=== PATIENT | female | born 1945 | race Caucasian/White ===

== ENCOUNTER 2017-08-09 03:58 | Inpatient (IN) | payer OTHER, MEDICARE ==
[~2017-08-09] VITALS: Ht 160 cm; Wt 78.8 kg
[2017-08-09] VITALS (46 sets, daily range): BP systolic 81–167; BP diastolic 37–148
--- NOTE | ~2017-08-09 | HC ---
[facility] [place] [address] CONSULTATION Name: ETIENNE MARIA Room #: 244-P ADM IN M.R.#: [id number] Admission: 08/09/17 Attend Phys: Fernando Banuelos Discharge: Date of : 45 Report #: [id number] THIS REPORT FOR: //name// CC: Forest Espana DATE OF SERVICE: 08/09/2017 INFECTIOUS DISEASE CONSULTATION REASON FOR CONSULTATION: I was asked to evaluate concerning pneumonia and sepsis in the setting of GI bleeding. HISTORY OF PRESENT ILLNESS: The patient is a 72-year-old who transferred from [facility] with lower GI bleed. She has been on the ventilator via tracheostomy. Has underlying cirrhosis due to FARLEY. Dropped her blood pressure while at the facility, then transferred to [facility] Emergency Room. Fluids have been started and blood pressure has improved. She is on FiO2 of 40%. Minimal tracheal secretions. No further GI bleeding noted. PEG tube in place and tolerating her feedings. She has an indwelling Deleon catheter and an upper extremity PICC. REVIEW OF SYSTEMS: Otherwise unremarkable. PAST MEDICAL HISTORY: She had been in [place] with respiratory failure and failure to wean from the ventilator, Underlying history of COPD, diabetes. She had MRSA in her sputum prior to her transfer. Also, has had Pseudomonas, hypothyroidism, major depressive disorder, herpes zoster. FAMILY HISTORY: Noncontributory. SOCIAL HISTORY: Appears to have a tobacco history. ALLERGIES: None. MEDICATIONS: As noted on her SEP, now on vancomycin, Zosyn and was given a dose of Levaquin. PHYSICAL EXAMINATION: VITAL SIGNS: Currently afebrile, hemodynamically stable. GENERAL: She does arouse, but unable to follow commands. HEENT: Unremarkable. NECK: With tracheostomy, which was unremarkable. LUNGS: Coarse, mostly on the right side with decreased breath sounds in the bases. HEART: Regular without murmur. ABDOMEN: Soft. PEG site was unremarkable. No definite mass or [address] [address] [facility] ADM IN M.R.#: [id number] Admission: 08/09/17 Attend Phys: Fernando Banuelos Discharge: Date of : 45 Report #: [id number] hepatosplenomegaly. EXTREMITIES: Marked bruising to her upper extremities with some oozing from the right arm. PICC site was unremarkable. Lower extremities with edema. LABORATORY STUDIES: CT scan shows several right upper lobe mass-type lesions versus infiltrate with moderate bilateral pleural effusions. Cirrhosis of the liver and splenomegaly. Small amount of ascites. Significant soft tissue edema. Left total shoulder arthroplasty, right total hip arthroplasty. Influenza antigen negative. Urinalysis positive for yeast, few wbc's. Sodium 143, potassium 4.8, bicarbonate 36, creatinine 2.4, alk phos 173, ALT 24. Hemoglobin 8.6, WBC 8, platelet 115,000. IMPRESSION: A 72-year-old with respiratory failure, unclear etiology for right upper lobe mass lesions versus pneumonia with lower gastrointestinal bleed. She has acute renal failure, anemia and thrombocytopenia in the setting of cirrhosis. PLAN: Recommend repeating her cultures, blood, urine and sputum. Obtain bacteria, fungal and AFB cultures from her respiratory tract. Monitor for further gastrointestinal blood loss. She has a sacral wound, which will be further inspected with nursing around for assistance. <ELECTRONICALLY SIGNED> By: Stanislaw Espana MD 08/10/17 1125 1731 0443 Stanislaw Espana MD /nt
--- NOTE | ~2017-08-09 | HC ---
[facility] [place] [address] CONSULTATION Name: ETIENNE MARIA Room #: 244-P [facility] IN M.R.#: [id number] Admission: 08/09/17 Attend Phys: Fernando Banuelos Discharge: 08/16/17 Date of : 45 Report #: [id number] THIS REPORT FOR: //name// CC: Forest Espana DATE OF SERVICE: 08/10/2017 WOUND CARE CONSULTATION PERSONAL PHYSICIAN: Petar Espana MD CHIEF COMPLAINT: Sacral decubitus ulcer. HISTORY OF PRESENT ILLNESS: This is a 72-year-old white female who was transferred from [facility] where she was noted to have rectal bleeding. The patient herself is on chronic ventilatory dependence, is unable to give me history at this time. The patient also is sedated. Per old records, the patient has history of COPD, PEG tube placement and then sacrococcygeal ulcer. We have been asked to assist in the care of sacrococcygeal ulcer. The patient was actually admitted for rectal bleeding and was also noted on exam to have significant skin tears, which were oozing blood at this time. The patient once again is unable to give any history. PAST MEDICAL HISTORY: Per old records once again is COPD, ventilator dependent, status post tracheostomy; recent history of GI bleeding; FARLEY; protein-calorie malnutrition; dysphagia. CURRENT MEDICATIONS: Multiple, I reviewed the patient's medications list. DRUG ALLERGIES: None. SOCIAL HISTORY: The patient resides in a care facility and is ventilator dependent. FAMILY HISTORY AND REVIEW OF SYSTEMS: Unobtainable because the patient is intubated and sedated. PHYSICAL EXAMINATION: VITAL SIGNS: Temp 36.6. Rest of the vital signs are stable. The patient is on a ventilator. GENERAL: This is a poorly arousable white female who is intubated and sedated, but will open eyes to painful stimuli. HEENT: Normocephalic, atraumatic. Mucous membranes are exquisitely dry. Pupils are round. Sclerae white. LUNGS: Show coarse breath sounds heard throughout. HEART: Regular, without murmur. [facility] [address] [place] [address] [facility] Room #: 244-P [facility] IN M.R.#: [id number] Admission: 08/09/17 Attend Phys: Fernando Banuelos Discharge: 08/16/17 Date of : 45 Report #: [id number] ABDOMEN: Soft, obese, nontender. EXTREMITIES: The patient has 3+ edema in bilateral lower extremities with weeping bloody drainage coming from the right upper extremity skin tears. Distal pulses are intact. Evaluation of the sacrococcygeal region reveals an unstageable decubitus ulcer with black soft eschar. Periulcer itself is otherwise intact without erythema, warmth or signs of cellulitis. NEUROLOGIC: One again, the patient is intubated and sedated on a ventilator. LABORATORY VALUES: White count 9.8, hemoglobin 29.7. BUN 82, creatinine 2.3, albumin is markedly low at 1.6. Chest x-ray shows small pleural effusions bilaterally, a large right lung infiltrate. CT scan of chest, abdomen and pelvis is pending. WOUND CARE COURSE: At this time, we will start the patient on Silvadene cream mixed with zinc to the sacrococcygeal area to soften his eschar and potentially for further debridement in the near future. I will have the patient be on low air loss mattress in order for him to have frequent turns. I will cover the skin tears with foam dressings for protection. We will make sure the patient's protein supplementation is maximized for optimal healing. We will continue to follow the patient. <ELECTRONICALLY SIGNED> By: Chetan Nevarez MD 09/08/17 1524 1423 0123 Chetan Nevarez MD /nt
--- NOTE | ~2017-08-09 | P ---
[place] [address] PROCEDURE REPORT Name: ETIENNE MARIA Room #: 244-P [facility] IN M.R.#: [id number] Admission: 08/09/17 Attend Phys: Fernando Banuelos Discharge: Date of : 45 Report #: [id number] THIS REPORT FOR: //name// CC: SHARRI Espana DATE OF SERVICE: 08/15/2017 PROCEDURE PERFORMED: Colonoscopy. HISTORY OF PRESENT ILLNESS: The patient is a 72-year-old female with a history of melanotic type stools as well as bright red blood per rectum. She has been dependent on a trach with a tracheostomy. She also has a PEG tube in place. She underwent an upper endoscopy by my partner, Dr. Chavarria last week, which noted a gastritis, but no signs of bleeding. Hemoglobin at this time is 8.9, this is down from yesterday 9.4. The patient currently has a rectal tube in place with clear yellow stool noted. There is no obvious bleeding. Plan is for colonoscopy. PROCEDURE: The risks and benefits of the procedure were explained to the patient's durable power of senior trial attorney, those risks including, but not limited to bleeding, perforation, and the risk of sedation. They understood these risks and gave informed consent. The procedure was performed at the bedside in the ICU. Sedation was given using propofol per anesthesia. Next, the rectal tube was deflated and removed. Next, a digital rectal exam showed large external hemorrhoids. No signs of bleeding, otherwise normal. Next, using a standard Fujinon colonoscope, the scope was placed in the patient's anus and advanced under direct vision to the cecum. The overall prep was excellent. The cecum and ileocecal valve were normal in appearance. Ascending, transverse, descending, and sigmoid colon were all normal. The rectal mucosa was normal. There was no evidence of bleeding throughout the exam today. No evidence of colitis or inflammation. Again, large external hemorrhoids were noted, nonbleeding; however, there was one area with a purple color change suggesting the possibility of a recent source of bleed. The scope was then withdrawn fully and the procedure terminated. The patient tolerated the procedure well. IMPRESSION: 1. Large external hemorrhoids, possible source of recent bright red blood per rectum. No evidence of active bleeding at this time. 2. Otherwise, normal colonoscopy. PLAN: 1. To replace a rectal tube today. 2. Continue to monitor hemoglobin. 3. We will restart tube feedings at this time. [address] [place] [address] PROCEDURE REPORT Name: ETIENNE MARIA Room #: 244-P [facility] IN .R.#: [id number] Admission: 08/09/17 Attend Phys: Fernando Banuelos Discharge: Date of : 45 Report #: [id number] Thank you for allowing me to participate in her care. <ELECTRONICALLY SIGNED> By: Tim Pulliam MD 08/15/17 1407 1012 1059 Tim Pulliam MD /denise
--- NOTE | ~2017-08-09 | HC ---
[facility] [place] [address] CONSULTATION Name: ETIENNE MARIA Room #: 244-P ADM IN M.R.#: [id number] Admission: 08/09/17 Attend Phys: Fernando Banuelos Discharge: Date of : 45 Report #: [id number] THIS REPORT FOR: //name// CC: Forest Espana REASON FOR CONSULTATION: Elevated creatinine. REASON FOR PRESENTATION: Rectal bleeding. HISTORY OF PRESENT ILLNESS: The details of the history of present illness were obtained from the medical record as the patient is currently on the vent and not able to provide me with the history. She is a 72-year-old who resides at the long-term [facility] for vent management. She is status post tracheostomy. She was found to have some bleeding around the tracheostomy in her [facility] facility, associated with bleeding from the rectum. She was transferred for further evaluation and management. It does not look like that she had history of chronic kidney disease. She was transferred from [place], [place], few weeks ago for chronic vent care and wound care along with the tube feed issues at the [facility] facility. She is known to have COPD, FARLEY. She also suffers from chronic diabetes mellitus. Not able to further clarify on her kidney function; however, on presentation, she was found to have a creatinine of 2.4 and I was asked to evaluate accordingly. There is no mention of chronic kidney disease in her previous medical records. She was transfused with blood yesterday and her hemoglobin was up to 10 this morning. GI is currently evaluating the source of the GI bleeding. PAST MEDICAL HISTORY: 1. COPD. 2. FARLEY. 3. Status post PEG tube. 4. Status post tracheostomy. 5. Chronic coccygeal wounds. 6. GERD. 7. History of MRSA. SOCIAL HISTORY: Unobtainable given the patient's current status. REVIEW OF SYSTEMS: Completely unable to obtain the review of system given the patient's nonverbal status. FAMILY HISTORY: Unobtainable. MEDICATIONS: Currently, the patient is maintained on: 1. D5W half normal saline at 75 mL: 2. Hydrocodone. 3. Levothyroxine. 4. [address]ol. [facility] [address] [place] [address] CONSULTATION Name: ETIENNE MARIA Room #: 244-P [facility] IN M.R.#: [id number] Admission: 08/09/17 Attend Phys: Fernando Banuelos Discharge: Date of : 45 Report #: [id number] 5. Protonix. 6. Vancomycin and Zosyn. PHYSICAL EXAMINATION: GENERAL: She is on the vent. She is nonverbal. VITAL SIGNS: Blood pressure is very labile from a low reading of 81/59 up to 268/238 per records which does not seem to be right to me. HEAD AND NECK: Tracheostomy in place. CHEST: No crackles. CARDIOVASCULAR: No rub. ABDOMEN: Soft, nontender. LOWER EXTREMITIES: +3 edema. LABORATORY DATA: Laboratory values reviewed. Hemoglobin is up to 10, BUN is 82, creatinine is 2.3. Albumin is 1.6. TSH was 14.6. Coagulations with an INR of 1.1. Serology is pending. IMAGING: Ultrasound with no acute finding. CT with bibasilar infiltrate and changes consistent with cirrhosis. ASSESSMENT, IMPRESSION, PLAN: 1. Chronic kidney disease. 2. Nonalcoholic steatohepatitis, cirrhosis. 3. Rectal bleeding. 4. Chronic obstructive pulmonary disease, status post tracheostomy. Vent dependency. 5. Percutaneous endoscopic gastrostomy tube. 6. Need to obtain the patient's old medical records, specifically her old kidney function. 7. Gastroenterology had been consulted for her possible gastrointestinal bleeding. 8. Continue to monitor hemoglobin. 9. Avoid nephrotoxins. 10. Gentle IV hydration until the patient is able to resume her tube feed. 11. Initiate diuresis. <ELECTRONICALLY SIGNED> By: Navdeep Shelby MD 08/14/17 1703 0731 0803 Navdeep Shelby MD /nt
--- NOTE | ~2017-08-09 | S ---
[facility] [place] [address] SURGICAL PATH RPT PROCEDURE Name: ETIENNE LOJA Room #: 244-P ADM IN M.R.#: [id number] Admission: 08/09/17 Date of : 45 Discharge: Report #: [id number] Path Case #: [id number] PATHOLOGY REPORT COLLECTION DATE: 08/10/2017 RECEIVED DATE: 08/11/2017 SUBMITTING PHYS: Dr. Gayathri Chavarria OTHER PHYS: Dr. Nilay Espana SPECIMEN(S) RECEIVED: A.Bx gastric * * * * * * * * * * * * FINAL DIAGNOSIS: "Bx gastric", biopsy: - Gastric mucosa with reactive changes and mild chronic inflammation. - Negative H. pylori immunohistochemical (block A1); control reacted appropriately. (CLW:db; 08/12/2017) PATHOLOGIST: Collette Bates M.D. REPORT ELECTRONICALLY SIGNED BY: Collette Bates M.D. DATE/TIME: 08/12/2017 13:06 * * * * * * * * * * * * GROSS PATHOLOGY: Received in formalin labeled "Etienne Loja, biopsy gastric, R/O H. pylori," is a segment of mason soft tissue measuring 0.5 cm in maximum dimension. The specimen is submitted entirely in cassette A1. (CAA; 08/11/2017) CLINICAL HISTORY: Pre-op diagnosis: Anemia, melena Post-op diagnosis: Hemorrhagic gastritis R/O H. pylori INITIAL CPT CODE(S): A; 10513, 23838 Professional services performed by [facility] at [facility] [address] [place] [address] Technical services performed by [facility] at [address] [place] [id number]. [facility] [address] [place] [address] SURGICAL PATH RPT PROCEDURE Name: ETIENNE LOJA Room #: 244-P ADM IN M.R.#: [id number] Admission: 08/09/17 Date of : 45 Discharge: Report #: [id number] Path Case #: [id number] [address] PHONE: [phone] DIRECTOR: Dinh Warren M.D. * * * END OF REPORT * * *
--- NOTE | ~2017-08-09 | CNG ---
[facility] [place] [address] CYTO-NONGYN REPORT PROCEDURE Name: ETIENNE LOJA Room #: 244-P ADM IN M.R.#: [id number] Admission: 08/09/17 Date of : 45 Discharge: Report #: [id number] Path Case #: [id number] CYTOPATHOLOGY REPORT COLLECTION DATE: 08/11/2017 RECEIVED DATE: 08/12/2017 SUBMITTING PHYS: Dr. Orville Rosario OTHER PHYS: Dr. Nilay Espana CLINICAL HISTORY: GI bleed, HCAP, elevated creatinine; See also [id number] SPECIMEN(S) RECEIVED: A.Bronchial wash, RLL B.Brushing, RLL * * * * * * * * * * * * FINAL DIAGNOSIS: A. Bronchial wash, RLL: Atypical cells identified. - Atypical cells and reactive bronchial epithelial cells identified with background acute and chronic inflammation. B. Brushing, RLL: Atypical cells identified. - Atypical cells and reactive bronchial epithelial cells identified amongst acute and chronic inflammation. COMMENT: The atypical cells are favored to be reactive. Clinical, radiographic and bronchoscopic correlation is required. PATHOLOGIST: Collette Bates M.D. REPORT ELECTRONICALLY SIGNED BY: Collette Bates M.D. DATE/TIME: 08/15/2017 14:27 * * * * * * * * * * * * GROSS PATHOLOGY: A. Bronchial wash, RLL: The specimen is submitted unfixed, labeled "Etienne Loja". Received by the Cytology Department is 25 mL of cloudy colorless fluid. One ThinPrep slide was prepared. B. Brushing, RLL: The specimen is labeled "Etienne Loja" and consists of a brush tip in fixative, and three fixed slides. One ThinPrep slide was prepared. (lg08.12.2017) DRAPERY ESTIMATOR(S): TONY Mulligan(ASCP) INITIAL CPT CODE(S): A; [address] [address] CYTO-NONGYN REPORT PROCEDURE Name: ETIENNE LOJA Room #: 244-P ADM IN M.R.#: [id number] Admission: 08/09/17 Date of : 45 Discharge: Report #: [id number] Path Case #: [id number]; [id number] Professional services performed by [facility] at [address], [place] [address] [facility] at [address] [place] [address]., [address], [place] [address]. [address], [facility] [address] [place] [address] PHONE: [phone] DIRECTOR: Dinh Warren M.D. * * * END OF REPORT * * *
--- NOTE | ~2017-08-09 | P ---
[facility] [place] [address] PROCEDURE REPORT Name: ETIENNE MARIA Room #: 244-P [facility] IN M.R.#: [id number] Admission: 08/09/17 Attend Phys: Fernando Banuelos Discharge: Date of : 45 Report #: [id number] THIS REPORT FOR: //name// CC: Petar Espana DATE OF SERVICE: 08/10/2017 PATIENT OF: Petar Espana MD PROCEDURE: EGD with biopsy. INDICATION FOR PROCEDURE: This patient had onset of melena through the night. Her hemoglobin was down from 8.6 on admission to 6.7 last night. She received 2 units of blood overnight and her hemoglobin was 10 this morning at 3:00 a.m. and at 10:00 a.m. it was 9.8, so it appeared to have stabilized. She had passed a lot of melena through the night and EGD is being performed to try to evaluate for the source of this melena. Informed consent for this procedure was obtained from the patient's , the risks of the procedure which include bleeding, perforation, infection, complications of sedation and the possibility I could miss something have been explained to the patient and he has indicated his consent for his to have the EGD done. Propofol was slowly titrated before and during this procedure for patient comfort by the anesthesia service. The [facility] upper videoscope was introduced through the upper esophageal sphincter and advanced under direct visualization to the second portion of the duodenum almost to the third portion. Findings are noted on withdrawal of the scope. The visualized portions of the duodenum appeared normal. Pylorus, normal mucosa; antrum, there is some hemorrhagic gastritis noted in the antrum, body, cardia and fundus of the stomach. Biopsies were obtained x 2 for histopathology to evaluate for possible H. pylori infection. There is deformity of the stomach with numerous scars that are star shaped along the greater curvature of the stomach. A PEG tube bumper is visible on the anterior wall of the stomach and appears normal. Biopsies were obtained x 2 for histopathology as mentioned. The scope was withdrawn to the esophagus. The Z line is appropriately located at approximately 38 cm. The esophageal mucosa appears normal throughout its entirety. The scope was withdrawn. The patient went to the recovery area in stable condition. She tolerated the procedure well. IMPRESSION: 1. Diffuse nonbleeding at this time, hemorrhagic gastritis, biopsies pending. 2. PEG tube bumper seen on the anterior wall of the stomach. 3. Multiple scars noted along the greater curvature of the stomach of uncertain [address] [address] PROCEDURE REPORT Name: ETIENNE MARIA [facility] IN ..#: [id number] Admission: 08/09/17 Attend Phys: Fernando Banuelos Discharge: Date of : 45 Report #: [id number] etiology. Recommendations are for her to be on a proton pump inhibitor drip continuously for now. We will monitor her H and H every 6 hours. Her tube feeding can be resumed. Thank you very much once again for allowing me to participate in her care Dr. Espana. <ELECTRONICALLY SIGNED> By: Gayathri Chavarria DO 08/11/17 0653 1603 0257 Gayathri Chavarria DO /nt
--- NOTE | ~2017-08-09 | HC ---
[facility] [place] [address] CONSULTATION Name: ETIENNE MARIA Room #: 244-P [facility] IN M.R.#: [id number] Admission: 08/09/17 Attend Phys: Fernando Banuelos Discharge: 08/16/17 Date of : 45 Report #: [id number] THIS REPORT FOR: //name// CC: Forest Villeda MD DATE OF SERVICE: 08/09/2017 REFERRING PROVIDER: Hugo Villeda MD REASON FOR CONSULTATION: Pneumonia. CHIEF COMPLAINT: Hemoptysis. HISTORY OF PRESENT ILLNESS: Our group was asked to evaluate the patient in consultation while hospitalized at [facility]. This is her first visit to [facility], recently admitted to [facility] 1 week ago, apparently has some chronic respiratory failure on mechanical ventilatory support due to underlying COPD, presented to the Emergency Department with some blood from tracheal aspirates as well as some rectal bleeding. Workup thus far did show some anemia. Chest x-ray showed multiple areas of infiltrate, questionable mass and was started on healthcare-associated pneumonia antibiotic coverage. She has some thick brown secretions around her tracheostomy site at this time. She is unable to give much further history due to being nonverbal. ALLERGIES: None known. PAST MEDICAL HISTORY: 1. Chronic respiratory failure. 2. COPD. 3. Hypothyroidism. 4. History of sacral wound. 5. Chronic respiratory failure on mechanical ventilatory support. OUTPATIENT MEDICATIONS: Included Synthroid, multivitamin, olanzapine, Protonix, quetiapine, vitamin D3, insulin, metoprolol, Brovana, Lasix, hydrocodone. SOCIAL HISTORY: The patient is a former smoker, unclear of the exact tobacco history. FAMILY HISTORY: Unobtainable. REVIEW OF SYSTEMS: Unobtainable due to her current status and being nonverbal. PHYSICAL EXAMINATION: VITAL SIGNS: Temperature 35.5, pulse 70, respiratory rate 18, blood pressure [facility] [address] [place] [address] CONSULTATION Name: ETIENNE MARIA Room #: 244-P [facility] IN .R.#: [id number] Admission: 08/09/17 Attend Phys: Fernando Banuelos Discharge: 08/16/17 Date of : 45 Report #: [id number] 136/85. GENERAL: This is an elderly woman, somnolent, somewhat responsive. ENT: An extended length trach in place with thick brown secretions noted around the airway. LUNGS: Reveal some coarse rhonchi throughout. CARDIOVASCULAR: Heart was regular. No murmurs noted. ABDOMEN: Soft. PEG tube in place. Bowel sounds active. EXTREMITIES: Revealed 1+ lower extremity edema. LABORATORY DATA: White blood cell count 8000, hemoglobin 9, hematocrit 27, platelet count 115. Sodium 143, potassium 4.8, chloride 100, bicarbonate 36, BUN 92, creatinine 2.4, glucose 263. Alkaline phosphatase 173, albumin 1.8. TSH 14.7. INR 1.1. Urinalysis; 6-15 white blood cells. Chest x-ray with diffuse pulmonary infiltrates, questionable mass-like infiltrate seen, right greater than left. IMPRESSION: 1. Multilobar pneumonia. The patient with history of methicillin resistant Staphylococcus aureus and Pseudomonas by report. 2. Chronic respiratory failure. 3. Possible gastrointestinal bleed. 4. Anemia. 5. Chronic respiratory failure, uncertain if she will ever be able to wean from ventilator. 6. Chronic obstructive pulmonary disease. SUGGESTIONS: 1. Bronchodilators. 2. Antibiotics per Infectious Disease service. 3. Await cultures and respiratory panels, looking for evidence of viral or influenza disease. 4. Additional recommendations to follow. Thank you for requesting our suggestions. <ELECTRONICALLY SIGNED> By: Orville Rosario MD 08/22/17 1535 [id number] Orville Rosario MD /nt
--- NOTE | ~2017-08-09 | P ---
[facility] [address] PROCEDURE REPORT Name: ETIENNE MARIA Room #: 244-P [facility] IN M.R.#: [id number] Admission: 08/09/17 Attend Phys: Fernando Banuelos Discharge: 08/16/17 Date of : 45 Report #: [id number] THIS REPORT FOR: //name// CC: Forest Villeda MD DATE OF SERVICE: 08/11/2017 BRONCHOSCOPY NOTE PROCEDURE: Fiberoptic bronchoscopy with bronchial washings and cytologic brushes in the right lower lobe. INDICATION: Multiple pulmonary nodular lesions and pneumonia, mucus plugging. The patient on chronic vent, ASA classification class 3. PROCEDURE NOTATION: After obtaining informed consent from family, was agreeable to proceed. Bronchoscopy equipment was brought to the bedside in ICU room 244. The patient received conscious sedation, a total of 2 mg of Versed were required prior to adequate sedation. Once accomplished, bronchoscope was passed through a size 8 distal extended length tracheostomy tube until the trachea was visualized. The distal trachea then received 1% lidocaine topically and provide topical anesthesia. Bronchoscope was then advanced through the mainstem, lobar, segmental and subsegmental bronchi throughout. Some mucus plugging noted predominantly in the right lower lung field, otherwise no significant lesions. Cytologic brushes were obtained. Random subsegments in the right lower lobe as well as bronchial washings throughout the right lower lung. Specimen sent for cytologic and microbiologic tests. The patient tolerated it well. No noted complications. IMPRESSION: Abnormal CT scan of the chest, suggesting nodular lesions or infiltrates. No mass lesions noted at least with endobronchial evaluation. PLAN: Await cytologic and microbiologic tests. Continue to follow radiographically. <ELECTRONICALLY SIGNED> By: Orville Rosario MD 08/22/17 1535 [id number] Orville Rosario MD /nt
--- NOTE | ~2017-08-09 | H ---
[facility] [place] [address] HISTORY AND PHYSICAL Name: ETIENNE MARIA Room #: 244-P ADM IN M.R.#: [id number] Admission: 08/09/17 Attend Phys: Fernando Banuelos Discharge: Date of : 45 Report #: [id number] THIS REPORT FOR: //name// CC: Forest Espana DATE OF SERVICE: 08/09/2017 CHIEF COMPLAINT: Bleeding. HISTORY OF PRESENT ILLNESS: The patient is a 72-year-old female transferred from [facility] long-term care ventilator unit for evaluation of bleeding. The report was nursing staff noted bleeding around the trach and some blood clots or bleeding per rectum yesterday and last night. They were unable to quantify how much, but through the middle of the night, they again noted about 50 mL of bleeding from the rectum. She was transferred to the ER and admitted to ICU overnight. She transferred to [facility] from [place] about a week ago for chronic ventilator care following a hospital stay, she had respiratory failure requiring intubation and mechanical ventilation, subsequent trach placement with PEG tube due to COPD. She has been nonweanable and has now been transferred to the chronic care unit at [facility]. PAST MEDICAL HISTORY: COPD, hypercapnic hypoxic respiratory failure, ventilator dependence, tracheostomy in place, FARLEY, diabetes type 2, and pancytopenia. PAST SURGICAL HISTORY: As above. FAMILY HISTORY: Unknown. SOCIAL HISTORY: smoking history. ALLERGIES: None. MEDICATIONS: Multivitamin, Seroquel, Protonix, vitamin D, clonidine, Levemir, acidophilus, Levoxyl, metoprolol, Brovana, Celexa, Lasix, hydrocodone, NovoLog sliding scale. REVIEW OF SYSTEMS: She just complains of being warm. She is alert. She answers basic questions. Denied chest pain, nausea, or vomiting. OBJECTIVE: VITAL SIGNS: Temperature 35.5, pulse 76, respirations 19, blood pressure , O2 sat 100% on the ventilator. GENERAL: She is awake and alert, in no distress. HEAD AND NECK: Unremarkable. There is a tracheostomy in place with some [facility] [address] [place] [address] HISTORY AND PHYSICAL Name: ETIENNE MARIA Room #: 244-P ADM IN ..#: [id number] Admission: 08/09/17 Attend Phys: Fernando Banuelos Discharge: Date of : 45 Report #: [id number] purulent drainage. HEART: Regular. LUNGS: Clear. No wheezing. ABDOMEN: Soft, normoactive bowel sounds. PEG tube in place. EXTREMITIES: No cyanosis or clubbing. There is 1+ edema of the forearms bilaterally with ecchymosis scattered throughout. NEUROLOGIC: She is alert. She follows basic commands. She speaks over the trach. She moves all extremities. LAB: Reviewed. ASSESSMENT: 1. Gastrointestinal bleed. 2. Chronic hypercapnic hypoxic respiratory failure. 3. Chronic kidney disease. 4. Chronic obstructive pulmonary disease. 5. Diabetes type 2. 6. Pancytopenia. 7. Non-alcoholic steatohepatitis. PLAN: Full ICU care has been entered. I will ask pulmonary and renal to assess her, may need to readdress her trach status. GI to see, although she might be a fragile status to consider endoscopy. Monitor for signs or symptoms of bleeding. <ELECTRONICALLY SIGNED> By: Hugo Villeda MD 08/10/17 1539 [id number] Hugo Villeda MD /nt
[2017-08-09 04:23] LABS: HEMOGLOBIN 8.6 gm/dL (12.0-15.0); MCH 28.4 pg (26.0-34.0); MCHC 31.7 g/dL (28.0-37.0); MCV 89.5 fL (80.0-100.0); RBC 3.02 mil/uL (4.20-5.00); RDW 19.6 % (10.5-14.5)
[2017-08-09 04:34] LABS: CALCIUM 8.9 mg/dL (8.5-10.1); CREATININE 2.4 mg/dL (0.6-1.0); POTASSIUM 4.8 mmol/L (3.5-5.1)
[2017-08-09] MEDS ORDERED: MULTIVITAMINS1 EAC7 PO (04:34)
[2017-08-09] MEDS ORDERED: PROTONIX40 M1 PO (04:36)
[2017-08-09] MEDS ORDERED: SEROQUEL 25 MG25 M1 PO (04:36)
[2017-08-09] MEDS ORDERED: OLANZAPINE2.5 MG PO (04:36)
[2017-08-09] MEDS ORDERED: VITAMIN D2000 UNIT PO (04:37)
[2017-08-09 04:38] LABS: APTT 25.4 Seconds (24.5-32.8); INR 1.1; PROTIME 11.5 Seconds (9.3-11.4)
[2017-08-09] MEDS ORDERED: PAIN RELIEF325 MG PO (04:38)
[2017-08-09] MEDS ORDERED: LEVEMIR SUBQ (04:39)
[2017-08-09] MEDS ORDERED: PROBIOTIC1 EAC1 PO (04:39)
[2017-08-09] MEDS ORDERED: CLONIDINE HCL0.1 M1 PO (04:39)
[2017-08-09 04:40] LABS: ALBUMIN 1.8 g/dL (3.4-5.0); TOTAL BILIRUBIN 0.7 mg/dL (<0.1-1.0); TOTAL PROTEIN 6.3 g/dL (6.4-8.2)
[2017-08-09] MEDS ORDERED: TIROSINT112 MCG PO (04:41)
[2017-08-09] MEDS ORDERED: LEVOTHYROXINE25 MCG PO (04:41)
[2017-08-09] MEDS ORDERED: METOPROLOL TART25 MG PO (04:42)
[2017-08-09] MEDS ORDERED: BROVANA15 MCG/2 M INH (04:43)
[2017-08-09] MEDS ORDERED: PROCEL1 EACH PO (04:44)
[2017-08-09] MEDS ORDERED: PERIDEX15 ML SWISH&SPIT (04:47)
[2017-08-09] MEDS ORDERED: CELEXA40 MG PO (04:48)
[2017-08-09 04:49] LABS: URINE BILIRUBIN NEGATIVE (Negative); URINE BLOOD 1+ (Negative); URINE CLARITY CLEAR; URINE COLOR YELLOW; URINE GLUCOSE-RANDOM* NEGATIVE (Negative); URINE KETONES NEGATIVE (Negative); URINE LEUKOCYTES-REFLEX 1+ (Negative); URINE NITRITE-REFLEX NEGATIVE (Negative); URINE PROTEIN (DIPSTICK) TRACE (Negative); URINE SPECIFIC GRAVITY 1.015 (1.005-1.035); URINE UROBILINOGEN 0.2 E.U./dl (0.2-1.0)
[2017-08-09] MEDS ORDERED: COLACE100 MG PO (04:49)
[2017-08-09] MEDS ORDERED: FUROSEMIDE 40 M40 M1 PO (04:49)
[2017-08-09] MEDS ORDERED: NORCO 5-325 TA1 EACH PO (04:50)
[2017-08-09] MEDS ORDERED: ROBITUSSIN100 MG/53 PO (04:50)
[2017-08-09] MEDS ORDERED: NOVOLOG100 UNIT/1 SUBQ (04:53)
[2017-08-09 05:08] LABS: BACTERIA-REFLEX None Seen /HPF (None Seen); CASTS None Seen /LPF (None Seen); CRYSTALS None Seen /LPF (None Seen); MUCUS None Seen strn/LPF (None Seen); SQUAMOUS None Seen /LPF (0-3); URINE RBC 3-10 Few /HPF (0-2); URINE WBC-REFLEX 6-15 Few /HPF (0-5); YEAST-REFLEX Present (None Seen)
[2017-08-09 10:25] LABS: HEMATOCRIT 22.8 % (37.0-47.0); HEMOGLOBIN 7.2 gm/dL (12.0-15.0)
[2017-08-09 13:51] LABS: BE(vivo) 4.5 mmol/L (-2 to +3); HCO3 30.5 mmol/L (22.0-26.0); PCO2 54.3 mmHg (35.0-45.0); PO2 94.1 mmHg (80.0-100.0); pH 7.368 (7.360-7.450); sO2 96.9 % (92.0-98.0)
[2017-08-09 16:45] LABS: URINE CREATININE-RANDOM* 23.9 mg/dL; URINE PROTEIN-RANDOM* 60.8 mg/dL (<11.9)
[2017-08-09 18:49] LABS: HEMOGLOBIN 6.7 gm/dL (12.0-15.0)
[2017-08-10] VITALS (64 sets, daily range): BP systolic 75–268; BP diastolic 41–238
[2017-08-10 03:16] LABS: HEMATOCRIT 30.2 % (37.0-47.0)
[2017-08-10 03:36] LABS: ALBUMIN 1.6 g/dL (3.4-5.0); CALCIUM 8.4 mg/dL (8.5-10.1); CREATININE 2.3 mg/dL (0.6-1.0); POTASSIUM 4.2 mmol/L (3.5-5.1); TOTAL BILIRUBIN 1.1 mg/dL (<0.1-1.0); TOTAL PROTEIN 5.7 g/dL (6.4-8.2)
[2017-08-10 10:54] LABS: HEMATOCRIT 29.7 % (37.0-47.0); HEMOGLOBIN 9.8 gm/dL (12.0-15.0)
[2017-08-11] VITALS (33 sets, daily range): BP systolic 89–141; BP diastolic 37–105
[2017-08-11 04:27] LABS: HEMATOCRIT 28.5 % (37.0-47.0); HEMOGLOBIN 9.4 gm/dL (12.0-15.0); MCH 29.3 pg (26.0-34.0); MCHC 33.1 g/dL (28.0-37.0); MCV 88.4 fL (80.0-100.0); RBC 3.22 mil/uL (4.20-5.00); RDW 17.6 % (10.5-14.5); WBC 5.2 thou/uL (4.0-11.0)
[2017-08-11 04:37] LABS: ALBUMIN 1.5 g/dL (3.4-5.0); CREATININE 2.2 mg/dL (0.6-1.0); PHOSPHORUS 4.9 mg/dL (2.5-4.9); POTASSIUM 3.7 mmol/L (3.5-5.1)
[2017-08-11 11:43] LABS: % SATURATION 22 % (20-39); IRON 24 ug/dL (50-170); TIBC 108 ug/dL (250-450)
[2017-08-12] VITALS (24 sets, daily range): BP systolic 89–144; BP diastolic 42–98
[2017-08-12 02:11] LABS: ADENOVIRUS Negative (Negative); INFLUENZA A Negative (Negative); INFLUENZA B Negative (Negative); METAPNEUMOVIRUS Negative (Negative); PARAINFLUENZA 1 Negative (Negative); PARAINFLUENZA 2 Negative (Negative); PARAINFLUENZA 3 Negative (Negative); RHINOVIRUS Negative (Negative); RSV A Negative (Negative); RSV B Negative (Negative)
[2017-08-12 05:18] LABS: BE(vivo) 5.1 mmol/L (-2 to +3); PCO2 52.4 mmHg (35.0-45.0); PO2 96.8 mmHg (80.0-100.0); sO2 97.2 % (92.0-98.0)
[2017-08-12 05:26] LABS: HEMATOCRIT 28.8 % (37.0-47.0); HEMOGLOBIN 9.3 gm/dL (12.0-15.0); MCHC 32.4 g/dL (28.0-37.0); MCV 89.4 fL (80.0-100.0); RBC 3.22 mil/uL (4.20-5.00); RDW 17.5 % (10.5-14.5); WBC 5.3 thou/uL (4.0-11.0)
[2017-08-12 05:37] LABS: ALBUMIN 1.5 g/dL (3.4-5.0); CALCIUM 8.3 mg/dL (8.5-10.1); CREATININE 2.1 mg/dL (0.6-1.0); POTASSIUM 3.3 mmol/L (3.5-5.1)
[2017-08-13] VITALS (22 sets, daily range): BP systolic 113–153; BP diastolic 41–77
[2017-08-13 05:24] LABS: HEMATOCRIT 27.7 % (37.0-47.0); HEMOGLOBIN 9.1 gm/dL (12.0-15.0); MCH 29.1 pg (26.0-34.0); MCHC 32.7 g/dL (28.0-37.0); MCV 88.8 fL (80.0-100.0); RBC 3.11 mil/uL (4.20-5.00); RDW 17.7 % (10.5-14.5); WBC 4.7 thou/uL (4.0-11.0)
[2017-08-13 05:35] LABS: ALBUMIN 1.5 g/dL (3.4-5.0); CALCIUM 8.2 mg/dL (8.5-10.1); CREATININE 2.1 mg/dL (0.6-1.0); PHOSPHORUS 3.5 mg/dL (2.5-4.9); POTASSIUM 3.5 mmol/L (3.5-5.1)
[2017-08-13 19:12] LABS: HISTOPLASMA MYCELIAL-ID Negative (Negative)
[2017-08-14] VITALS (23 sets, daily range): BP systolic 123–174; BP diastolic 37–106
[2017-08-14 05:09] LABS: CALCIUM 8.3 mg/dL (8.5-10.1); CREATININE 1.9 mg/dL (0.6-1.0); POTASSIUM 3.4 mmol/L (3.5-5.1)
[2017-08-14 05:24] LABS: HEMATOCRIT 27.6 % (37.0-47.0); HEMOGLOBIN 9.1 gm/dL (12.0-15.0); MCH 29.4 pg (26.0-34.0); MCHC 33.1 g/dL (28.0-37.0); MCV 88.8 fL (80.0-100.0); RBC 3.11 mil/uL (4.20-5.00); RDW 17.7 % (10.5-14.5); WBC 4.5 thou/uL (4.0-11.0)
[2017-08-14 05:26] LABS: BE(vivo) 4.6 mmol/L (-2 to +3); HCO3 31.1 mmol/L (22.0-26.0); PCO2 57.3 mmHg (35.0-45.0); PO2 95.1 mmHg (80.0-100.0); pH 7.353 (7.360-7.450); sO2 96.8 % (92.0-98.0)
[2017-08-14 11:22] LABS: HEMATOCRIT 28.3 % (37.0-47.0); HEMOGLOBIN 9.4 gm/dL (12.0-15.0); MCH 29.4 pg (26.0-34.0); MCHC 33.2 g/dL (28.0-37.0); MCV 88.6 fL (80.0-100.0); RBC 3.19 mil/uL (4.20-5.00); RDW 17.5 % (10.5-14.5)
[2017-08-15] VITALS (55 sets, daily range): BP systolic 93–153; BP diastolic 33–97
[2017-08-15 05:16] LABS: BE(vivo) 7.3 mmol/L (-2 to +3); HCO3 33.3 mmol/L (22.0-26.0); PO2 94.9 mmHg (80.0-100.0); sO2 97.1 % (92.0-98.0)
[2017-08-15 05:19] LABS: HEMATOCRIT 27.1 % (37.0-47.0); HEMOGLOBIN 8.9 gm/dL (12.0-15.0); MCH 29.2 pg (26.0-34.0); MCV 88.5 fL (80.0-100.0); RBC 3.06 mil/uL (4.20-5.00); RDW 17.6 % (10.5-14.5); WBC 4.7 thou/uL (4.0-11.0)
[2017-08-15 05:36] LABS: ALBUMIN 1.5 g/dL (3.4-5.0); CREATININE 1.7 mg/dL (0.6-1.0); PHOSPHORUS 2.7 mg/dL (2.5-4.9); POTASSIUM 3.4 mmol/L (3.5-5.1)
[2017-08-16] VITALS (15 sets, daily range): BP systolic 123–166; BP diastolic 50–119
[2017-08-16 06:07] LABS: ALBUMIN 1.6 g/dL (3.4-5.0); CALCIUM 8.7 mg/dL (8.5-10.1); CREATININE 1.7 mg/dL (0.6-1.0); PHOSPHORUS 2.6 mg/dL (2.5-4.9); POTASSIUM 4.1 mmol/L (3.5-5.1)
[2017-08-16] MEDS ORDERED: DUONEB 2.5-0.5 M3 ML INH (09:54)
[2017-08-16] MEDS ORDERED: SYNTHROID150 MCG PO (09:55)
[2017-08-16] MEDS ORDERED: NOVOLOG100 UNIT/1 SUBQ (09:55)
[2017-08-16] MEDS ORDERED: ATIVAN0.5 MG PER TUBE (09:55)
[2017-08-16] MEDS ORDERED: UNASYN 3 GM VIAL3 G1 IV (09:56)
[2017-08-16 23:11] LABS: HISTOPLASMA MYCELIAL-CF Negative (Neg:<1:2)
[2017-08-18 09:56] LABS: T-SPOT.TB Negative
== END 2017-08-16 13:35 | DRG 207 ==
LOC: ER 03:58 → ICU 04:49 → EROBS 04:49 → ICU 05:46
PROVIDERS: Emergency Medicine; Hospitalist; Internal Medicine Gastroenterology; Internal Medicine Geriatric Medicine; Internal Medicine Nephrology; Internal Medicine Pulmonary Disease; Nurse Practitioner; Specialist
PROC: 5A1955Z Respiratory Ventilation, Greater than 96 Consecutive Hours (ICD-10-PCS; principal; 2017-08-09)
PROC: 30233N1 Transfusion of Nonautologous Red Blood Cells into Peripheral Vein, Percutaneous Approach (ICD-10-PCS; 2017-08-09)
PROC: 05HB33Z Insertion of Infusion Device into Right Basilic Vein, Percutaneous Approach (ICD-10-PCS; 2017-08-09)
PROC: 0DB68ZX Excision of Stomach, Via Natural or Artificial Opening Endoscopic, Diagnostic (ICD-10-PCS; 2017-08-10)
PROC: 0BD68ZX Extraction of Right Lower Lobe Bronchus, Via Natural or Artificial Opening Endoscopic, Diagnostic (ICD-10-PCS; 2017-08-11)
PROC: 0BDF8ZX Extraction of Right Lower Lung Lobe, Via Natural or Artificial Opening Endoscopic, Diagnostic (ICD-10-PCS; 2017-08-11)
PROC: 0DJD8ZZ Inspection of Lower Intestinal Tract, Via Natural or Artificial Opening Endoscopic (ICD-10-PCS; 2017-08-15)
DX: J96.22 Acute and chronic respiratory failure with hypercapnia (principal); K29.71 Gastritis, unspecified, with bleeding; J15.212 Pneumonia due to Methicillin resistant Staphylococcus aureus; N17.9 Acute kidney failure, unspecified; D61.818 Other pancytopenia; E46 Unspecified protein-calorie malnutrition; E87.0 Hyperosmolality and hypernatremia; Z99.11 Dependence on respirator [ventilator] status; J44.0 Chronic obstructive pulmonary disease with (acute) lower respiratory infection; J96.21 Acute and chronic respiratory failure with hypoxia; E03.9 Hypothyroidism, unspecified; K74.60 Unspecified cirrhosis of liver; F32.9 Major depressive disorder, single episode, unspecified; K21.9 Gastro-esophageal reflux disease without esophagitis; N18.9 Chronic kidney disease, unspecified; K75.81 Nonalcoholic steatohepatitis (NASH); K64.4 Residual hemorrhoidal skin tags; R13.10 Dysphagia, unspecified; J98.4 Other disorders of lung; E11.22 Type 2 diabetes mellitus with diabetic chronic kidney disease; L89.100 Pressure ulcer of unspecified part of back, unstageable; D63.8 Anemia in other chronic diseases classified elsewhere; K20.9 Esophagitis, unspecified; E87.6 Hypokalemia; L89.150 Pressure ulcer of sacral region, unstageable; Z87.891 Personal history of nicotine dependence; Z86.14 Personal history of Methicillin resistant Staphylococcus aureus infection; Z93.1 Gastrostomy status; Z79.899 Other long term (current) drug therapy; Z68.30 Body mass index [BMI] 30.0-30.9, adult; S51.819A Laceration without foreign body of unspecified forearm, initial encounter; Y93.89 Activity, other specified; X58.XXXA Exposure to other specified factors, initial encounter; Y92.89 Other specified places as the place of occurrence of the external cause; Y99.8 Other external cause status
CPT/HCPCS: 10078; 62110; 62900